=== PATIENT | male | born 1985 | race Caucasian/White ===

== ENCOUNTER → 2017-01-14 | Outpatient (CLI) | payer SELFPAY ==
--- NOTE | 2017-01-14 19:29 | NM ---
EXAMINATION TYPE: NM hepatobiliary w EF DATE OF EXAM: 01/14/2017 COMPARISON: NONE HISTORY: TECHNIQUE: After the intravenous administration of 5.06 mCi Tc 99m Mebrofenin hepatobiliary scintigra phy is performed. Immediate images post injection. FINDINGS: There is prompt opacification of the liver that has normal size and contour. There are no focal defec ts. There is tracer in the small bowel at 5 minutes. At 1 hour the tracers mostly cleared from the li scarlett and there is a small amount of tracer in the gallbladder at 1 hour. The post ensure images show a gallbladder ejection fraction of 60% which is normal.. IMPRESSION: Normal hepatobiliary scan. 60% gallbladder ejection fraction.
== END | disposition home or self-care (01) ==
LOC: RADNMMAIN 15:10
PROVIDERS: ATTEND Family Medicine
DX: R10.9 Unspecified abdominal pain (principal)
CPT/HCPCS: 78226; A9537

== ENCOUNTER → 2017-03-09 | Outpatient (CLI) | payer OTHER ==
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
== END | disposition home or self-care (01) ==
LOC: RADXRMAIN 11:23
PROVIDERS: ATTEND Emergency Medicine
DX: L03.012 Cellulitis of left finger (principal)

== ENCOUNTER → 2019-06-05 | Outpatient (CLI) | payer BC ==
--- NOTE | 2019-06-05 16:45 | XR ---
"EXAMINATION TYPE: XR chest 2V DATE OF EXAM: 06/05/2019 COMPARISON: NONE HISTORY: Cough and shortness of breath TECHNIQUE: Frontal and lateral views of the chest are obtained. FINDINGS: There is no pleural effusion or pneumothorax seen. The cardiac silhouette size is within normal limits. The osseous structures are intact. There is bronchial wall thickening present. Quest ion some patchy increased perihilar density on the left. IMPRESSION: Sinus consistent with pneumonia, bronchial wall thickening may be due to bronchitis, vipul ctive airways disease, follow-up recommended. A Yellow level critical message alert has been initiated for Jaret Epperson MD via the [employer] 0 | Critical Results System on 06/05/2019 4:42 PM. This message alert has been sent to Jaret Epperson MD via the preferences provided by the clinician for the receipt of Radiology Critical Findings. [facility] ID [id number]."
== END ==
LOC: RADXRMAIN 16:02
PROVIDERS: ATTEND Family Medicine
DX: R05 Cough (principal)
CPT/HCPCS: 71046

== ENCOUNTER 2022-12-29 16:32 | Emergency (ER) | payer BC ==
--- NOTE | 2022-12-29 16:35 | ED ---
General Adult HPI <Joesph Navarro - Last Filed: 12/29/22 22:35> - General Source: RN notes reviewed <Jessi Gillespie - Last Filed: 12/29/22 22:52> - General Stated complaint: ABD Pain Time Seen by Provider: 12/29/22 16:34 - History of Present Illness Initial comments: This is a 37-year-old male with a past medical history including diabetes and atrial fibrillation not on her current medications presents emergency department today for overall fatigue and generalized abdominal pain. The patient stated over the last 2 weeks he had generalized abdominal pain with pain in the epigastric region. The patient also stated that he had increasing fatigue over the last 3-4 days and has not and drink anything over the last several days. The patient came to the emergency Department because of the continued discomfort. The patient had not seen his primary care physician. The patient is otherwise resting in bed comfortably without any acute distress noted. The patient denied any fevers and chills. (Joseph Navarro) 37 year old male with medical history of atrial fibrillation and diabetes presents to the emergency department with a chief complaint of generalized abdominal pain x 3 days. Patient reports accompanying symptoms of nausea. Denies fevers. He is complaining of generalized weakness and fatigue for 2 weeks. I performed the quick note portion of this exam. Verbal signature Jessi Gillespie PA-C (Jessi Gillespie) - Related Data Home Medications Medication Instructions Recorded Confirmed Insulin Glargine [Lantus] 24 unit SQ HS 02/27/15 02/28/15 Insulin Lispro [humaLOG] 0 units SQ Q4HR PRN 02/27/15 02/28/15 Previous Rx's Medication Instructions Recorded Dicyclomine [Bentyl] 10 mg PO TID #20 capsule 12/29/22 Allergies Allergy/AdvReac Type Severity Reaction Status Date / Time No Known Allergies Allergy Verified 02/27/15 14:48 Review of Systems ROS Other: All systems not noted in ROS Statement are negative. <Joseph Navarro - Last Filed: 12/29/22 22:35> ROS Other: All systems not noted in ROS Statement are negative. <Jessi Gillespie - Last Filed: 12/29/22 22:52> ROS Statement: Those systems with pertinent positive or pertinent negative responses have been documented in the HPI. Past Medical History Past Medical History: Atrial Fibrillation, Diabetes Mellitus, Skin Disorder Additional Past Medical History / Comment(s): occasional afib-. psoriasis History of Any Multi-Drug Resistant Organisms: None Reported Past Surgical History: No Surgical Hx Reported Past Anesthesia/Blood Transfusion Reactions: No Reported Reaction Additional Past Anesthesia/Blood Transfusion Reaction / Comment(s): fisrt time to have anesthesia Past Alcohol Use History: Occasional Additional Past Alcohol Use History / Comment(s): might smoke about 20 cigatettes a week or less Past Drug Use History: None Reported - Past Family History Mother Family Medical History: No Reported History <Jessi Gillespie - Last Filed: 12/29/22 22:52> General Exam Limitations: no limitations General appearance: alert, in no apparent distress Head exam: Present: atraumatic, normocephalic, normal inspection Eye exam: Present: normal appearance, PERRL Pupils: Present: normal accommodation ENT exam: Present: normal exam, normal oropharynx, mucous membranes moist Neck exam: Present: normal inspection, full ROM Respiratory exam: Present: normal lung sounds bilaterally Cardiovascular Exam: Present: regular rate, normal rhythm, normal heart sounds GI/Abdominal exam: Present: soft, tenderness (Mild TTP in the epigastric region), normal bowel sounds Extremities exam: Present: normal inspection, full ROM Back exam: Present: normal inspection, full ROM Neurological exam: Present: alert, oriented X3, CN II-XII intact Psychiatric exam: Present: normal affect, normal mood Skin exam: Present: warm, dry <Joseph Navarro - Last Filed: 12/29/22 22:35> <Jessi Gillespie - Last Filed: 12/29/22 22:52> - General Exam Comments Initial Comments: Visual Physical Exam Vital signs reviewed General: Well-appearing, nontoxic, no acute distress. Head: Normocephalic, atraumatic Eyes: PERRLA, EOMI ENT: Airway patent Chest: Nonlabored breathing Skin: No visual rash, normal skin tone Neuro: Alert and oriented 3 Musculoskeletal: No gross abnormalities (Jessi Gillespie) Course Vital Signs 12/29/22 17:01 Temperature 97.9 F Pulse Rate 76 Respiratory 16 Rate Blood Pressure 151/79 O2 Sat by Pulse 97 Oximetry Medical Decision Making - Lab Data Result diagrams: 12/29/22 17:17 12/29/22 17:17 <Joseph Navarro - Last Filed: 12/29/22 22:35> - Lab Data Result diagrams: 12/29/22 17:17 12/29/22 17:17 <Jessi Gillespie - Last Filed: 12/29/22 22:52> - Medical Decision Making Was pt. sent in by a medical professional or institution ([facility]OY Vick, ASSEMBLER TRUCK TRAILER, urgent care, hospital, or fci...) When possible be specific @ -No Did you speak to anyone other than the patient for history (EMS, parent, family, police, friend...)? What history was obtained from this source @ -No Did you review nursing and triage notes (agree or disagree)? Why? @ -I reviewed and agree with nursing and triage notes Were old charts reviewed (outside hosp., previous admission, EMS record, old EKG, old radiological studies, urgent care reports/EKG's, fci records)? Report findings @ -No old charts were reviewed Differential Diagnosis (chest pain, altered mental status, abdominal pain women, abdominal pain men, vaginal bleeding, weakness, fever, dyspnea, syncope, headache, dizziness, GI bleed, back pain, seizure, CVA, palpatations, mental health)? @ -Peptic ulcer disease, gastritis, gastroenteritis, mono EKG interpreted by me (3pts min.). @ -None X-rays interpreted by me (1pt min.). @ -None done CT interpreted by me (1pt min.). @ -None done U/S interpreted by me (1pt. min.). @ -Ultrasound was obtained and was interpreted by myself showing no acute process. What testing was considered but not performed or refused? (CT, X-rays, U/S, labs)? Why? @ -None What meds were considered but not given or refused? Why? @ -None Did you discuss the management of the patient with other professionals (professionals i.e. TROY Vick, ASSEMBLER TRUCK TRAILER, lab, RT, psych nurse, director social service, inspector repairer sandstone, teacher, financial aid officer, binder caser)? Give summary @ -No Was smoking cessation discussed for >3mins.? @ -No Was critical care preformed (if so, how long)? @ -No Were there social determinants of health that impacted care today? How? (Homelessness, low income, unemployed, alcoholism, drug addiction, bonner sportation, low edu. Level, literacy, decrease access to med. care, halfway, rehab)? @ -No Was there de-escalation of care discussed even if they declined (Discuss DNR or withdrawal of care, Hospice)? DNR status @ -No What co-morbidities impacted this encounter? (DM, HTN, Smoking, COPD, CAD, Cancer, CVA, ARF, Chemo, Hep., AIDS, mental health diagnosis, sleep apnea, morbid obesity)? @ -Diabetes, atrial fibrillation, not on any medication Was patient admitted / discharged? Hospital course, mention meds given and route, prescriptions, significant lab abnormalities, going to OR and other pertinent info. @ -The patient was seen and evaluated in emergency department. Physical exam, the patient was resting in bed without any acute distress. Vital signs admission were stable. All laboratory workup was within normal limits. On reevaluation, the patient stated he had continued epigastric discomfort and was given a GI cocktail. A heterophile test was ordered. The patient remained stable and had Bentyl as a prescription sent to the pharmacy because he did not want to take it here in emergency department. The patient was stable for discharge and was given follow-up for Dr. Rowe as well as his primary care physician. The patient was also advised report back to the emergency department. Worsening pain or distress. The patient was agreeable to this and all discretions were answered. The patient was discharged home in stable condition. Undiagnosed new problem with uncertain prognosis? @ -No Drug Therapy requiring intensive monitoring for toxicity (Heparin, Nitro, Insulin, Cardizem)? @ -No Were any procedures done? @ -No Diagnosis/symptom? @ -Abdominal pain, NOS, fatigue Acute, or Chronic, or Acute on Chronic? @ -Acute on chronic Uncomplicated (without systemic symptoms) or Complicated (systemic symptoms)? @ -Uncomplicated Side effects of treatment? @ -No Exacerbation, Progression, or Severe Exacerbation? @ -No Poses a threat to life or bodily function? How? (Chest pain, [place], [place], pneumonia, PE, COPD, DKA, ARF, appy, cholecystitis, CVA, Diverticulitis, Homicidal, Suicidal, threat to staff... and all critical care pts) @ -No (Joseph Navarro) - Lab Data Lab Results 12/29/22 12/29/22 12/29/22 Range/Units 17:15 17:17 17:17 WBC 5.7 (3.8-10.6) k/uL RBC 5.20 (4.30-5.90) m/uL Hgb 16.0 (13.0-17.5) gm/dL Hct 46.5 (39.0-53.0) % MCV 89.3 (80.0-100.0) fL MCH 30.7 (25.0-35.0) pg MCHC 34.4 (31.0-37.0) g/dL RDW 13.2 (11.5-15.5) % Plt Count 232 (150-450) k/uL MPV 8.3 Neutrophils % 54 % Lymphocytes % 33 % Monocytes % 5 % Eosinophils % 5 % Basophils % 1 % Neutrophils # 3.0 (1.3-7.7) k/uL Lymphocytes # 1.9 (1.0-4.8) k/uL Monocytes # 0.3 (0-1.0) k/uL Eosinophils # 0.3 (0-0.7) k/uL Basophils # 0.1 (0-0.2) k/uL Sodium 140 (137-145) mmol/L Potassium 3.8 (3.5-5.1) mmol/L Chloride 105 (98-107) mmol/L Carbon Dioxide 28 (22-30) mmol/L Anion Gap 7 mmol/L BUN 17 (9-20) mg/dL Creatinine 0.80 (0.66-1.25) mg/dL Est GFR (CKD-EPI)AfAm >90 (>60 ml/min/1.73 sqM) Est GFR (CKD-EPI)NonAf >90 (>60 ml/min/1.73 sqM) Glucose 94 (74-99) mg/dL Plasma Lactic Acid José Luis (0.7-2.0) mmol/L Calcium 9.5 (8.4-10.2) mg/dL Total Bilirubin 1.9 H (0.2-1.3) mg/dL AST 47 (17-59) U/L ALT 54 H (4-49) U/L Alkaline Phosphatase 45 (38-126) U/L Total Protein 7.2 (6.3-8.2) g/dL Albumin 4.4 (3.5-5.0) g/dL Influenza Type A (PCR) Not Detected (Not Detectd) Influenza Type B (PCR) Not Detected (Not Detectd) RSV (PCR) Not Detected (Not Detectd) SARS-CoV-2 (PCR) Not Detected (Not Detectd) 12/29/22 Range/Units 17:19 WBC (3.8-10.6) k/uL RBC (4.30-5.90) m/uL Hgb (13.0-17.5) gm/dL Hct (39.0-53.0) % MCV (80.0-100.0) fL MCH (25.0-35.0) pg MCHC (31.0-37.0) g/dL RDW (11.5-15.5) % Plt Count (150-450) k/uL MPV Neutrophils % % Lymphocytes % % Monocytes % % Eosinophils % % Basophils % % Neutrophils # (1.3-7.7) k/uL Lymphocytes # (1.0-4.8) k/uL Monocytes # (0-1.0) k/uL Eosinophils # (0-0.7) k/uL Basophils # (0-0.2) k/uL Sodium (137-145) mmol/L Potassium (3.5-5.1) mmol/L Chloride (98-107) mmol/L Carbon Dioxide (22-30) mmol/L Anion Gap mmol/L BUN (9-20) mg/dL Creatinine (0.66-1.25) mg/dL Est GFR (CKD-EPI)AfAm (>60 ml/min/1.73 sqM) Est GFR (CKD-EPI)NonAf (>60 ml/min/1.73 sqM) Glucose (74-99) mg/dL Plasma Lactic Acid José Luis 0.9 (0.7-2.0) mmol/L Calcium (8.4-10.2) mg/dL Total Bilirubin (0.2-1.3) mg/dL AST (17-59) U/L ALT (4-49) U/L Alkaline Phosphatase (38-126) U/L Total Protein (6.3-8.2) g/dL Albumin (3.5-5.0) g/dL Influenza Type A (PCR) (Not Detectd) Influenza Type B (PCR) (Not Detectd) RSV (PCR) (Not Detectd) SARS-CoV-2 (PCR) (Not Detectd) Disposition Is patient prescribed a controlled substance at d/c from ED?: No Time of Disposition: 22:45 <Joseph Navarro - Last Filed: 12/29/22 22:35> <Jessi Gillespie - Last Filed: 12/29/22 22:52> Clinical Impression: Abdominal pain, Fatigue Disposition: HOME SELF-CARE Condition: Stable Instructions (If sedation given, give patient instructions): Abdominal Pain (ED) Prescriptions: Dicyclomine [Bentyl] 10 mg PO TID #20 capsule Referrals: Maty Farley III, MD [Primary Care Provider] - 1-2 days Gaby Rowe MD [STAFF PHYSICIAN] - 1-2 days
[2022-12-29 17:37] LABS: Basophils # (A) 0.1 k/uL (0-0.2); Basophils % (A) 1 %; Eosinophils # (A) 0.3 k/uL (0-0.7); Eosinophils % (A) 5 %; HCT 46.5 % (39.0-53.0); Lymphocytes # (A) 1.9 k/uL (1.0-4.8); Lymphocytes % (A) 33 %; MCH 30.7 pg (25.0-35.0); MCHC 34.4 g/dL (31.0-37.0); MCV 89.3 fL (80.0-100.0); Mean Platelet Volume 8.3; Monocytes # (A) 0.3 k/uL (0-1.0); Monocytes % (A) 5 %; Neutrophils % (A) 54 %; Platelet Count 232 k/uL (150-450); RDW 13.2 % (11.5-15.5); WBC 5.7 k/uL (3.8-10.6)
[2022-12-29 18:09] LABS: ALT 54 U/L (4-49); AST 47 U/L (17-59); African American GFR (CKD) >90 (>60 ml/min/1.73 sqM); Albumin 4.4 g/dL (3.5-5.0); Alkaline Phosphatase 45 U/L (38-126); Anion Gap 7 mmol/L; Blood Urea Nitrogen 17 mg/dL (9-20); Calcium 9.5 mg/dL (8.4-10.2); Carbon Dioxide 28 mmol/L (22-30); Chloride 105 mmol/L (98-107); Glucose 94 mg/dL (74-99); Non-African American GFR(CKD) >90 (>60 ml/min/1.73 sqM); Potassium 3.8 mmol/L (3.5-5.1); Sodium 140 mmol/L (137-145); Total Bilirubin 1.9 mg/dL (0.2-1.3); Total Protein 7.2 g/dL (6.3-8.2)
--- NOTE | 2022-12-29 20:37 | US ---
EXAMINATION TYPE: US gallbladder DATE OF EXAM: 12/29/2022 COMPARISON: NONE CLINICAL INDICATION: Male, 37 years old with history of elevated bilirubin; elevated bilirubin. Patie nt states weakness for 2 weeks TECHNIQUE: Multiple sonographic images of the right upper quadrant are obtained. FINDINGS: EXAM MEASUREMENTS: Liver Length: 15.4 cm Gallbladder Wall: 0.25 cm CBD: 0.33 cm Right Kidney: 11.9 x 6.1 x 7.2 cm CONSTRUCTION SAFETY CONSULTANT NOTES: Pancreas: Obscured by bowel gas Liver: wnl Gallbladder: wnl Evidence for sonographic Garcia's sign: No CBD: wnl Right Kidney: wnl Pancreas is obscured by overlying bowel gas. Liver is unremarkable without focal lesion. Gallbladder is unremarkable without evidence of cholelithiasis, wall thickening, or pericholecystic fluid. Per so nographer, negative sonographic Garcia sign. Common bile duct within normal limits. Right kidney is u nremarkable without evidence of hydronephrosis, solid mass, nephrolithiasis. IMPRESSION: Unremarkable right upper quadrant abdominal ultrasound.
[2022-12-29] MEDS ORDERED: MAG HYDROX/AL HYDROX/SIMETH 30 ML, HYOSCYAMINE ELIXIR 10 ML, LIDOCAINE 2% GLYDO JELLY 1... PO STA ×3 (22:34)
[2022-12-29 23:23] VITALS: RESP 18
[2022-12-30 00:23] VITALS: BP 103/71; PULSE 60; TEMP 98.9
== END 2022-12-30 00:23 | disposition home or self-care (01) ==
LOC: EC 16:32
DX: R10.11 Right upper quadrant pain (principal); R53.83 Other fatigue; I48.91 Unspecified atrial fibrillation; E11.9 Type 2 diabetes mellitus without complications; Z79.4 Long term (current) use of insulin
CPT/HCPCS: 36415; 76705; 80053; 83605; 85025; 86308; 87636; 99284

== ENCOUNTER 2022-12-31 19:34 | Emergency (ER) | payer BC ==
[2022-12-31 19:41] VITALS: TEMP 99.1
--- NOTE | 2022-12-31 21:09 | ED ---
Abdominal Pain HPI - General Source: patient Mode of arrival: ambulatory Limitations: no limitations <Emre Gaona - Last Filed: 12/31/22 21:08> <Kevin Valderrama - Last Filed: 12/31/22 23:51> - General Chief Complaint: Abdominal Pain Stated Complaint: EXTREME ABD PAIN Time Seen by Provider: 12/31/22 21:08 - History of Present Illness Initial Comments: 37-year-old male presenting with chief complaint of abdominal pain. He was seen here 2 days ago for same complaint. (Emre Gaona) 37-year-old male presents to the ED with a chief complaint of abdominal pain. Patient last seen here 2 days ago. At that time, notes that he has had diffuse abdominal pain mostly upper floor last few weeks with associated nausea and vomiting. At that time, had an ultrasound gallbladder which was unremarkable. Laboratory studies at that time were also unremarkable. Since discharge, patient states pain has worsened in severity. Also notes he feels more fatigued than usual. Denies changes in bowel or bladder habits. Denies chest pain shortness of breath. No other complaints. (Kevin Valderrama) - Related Data Home Medications Medication Instructions Recorded Confirmed Insulin Glargine [Lantus] 24 unit SQ HS 02/27/15 02/28/15 Insulin Lispro [humaLOG] 0 units SQ Q4HR PRN 02/27/15 02/28/15 Previous Rx's Medication Instructions Recorded Dicyclomine [Bentyl] 10 mg PO TID #20 capsule 12/29/22 Dicyclomine [Bentyl] 10 mg PO TID #20 capsule 12/31/22 Allergies Allergy/AdvReac Type Severity Reaction Status Date / Time No Known Allergies Allergy Verified 12/31/22 19:41 Review of Systems ROS Other: All systems not noted in ROS Statement are negative. <Emre Gaona - Last Filed: 12/31/22 21:08> ROS Other: All systems not noted in ROS Statement are negative. <Kevin Valderrama - Last Filed: 12/31/22 23:51> ROS Statement: Those systems with pertinent positive or pertinent negative responses have been documented in the HPI. Past Medical History Past Medical History: Atrial Fibrillation, Diabetes Mellitus, Skin Disorder Additional Past Medical History / Comment(s): occasional afib-. psoriasis History of Any Multi-Drug Resistant Organisms: None Reported Past Surgical History: No Surgical Hx Reported Past Anesthesia/Blood Transfusion Reactions: No Reported Reaction Additional Past Anesthesia/Blood Transfusion Reaction / Comment(s): fisrt time to have anesthesia Past Psychological History: No Psychological Hx Reported Smoking Status: Vaper Past Alcohol Use History: Occasional Past Drug Use History: None Reported - Past Family History Mother Family Medical History: No Reported History <Emre Gaona - Last Filed: 12/31/22 21:08> General Exam Limitations: no limitations <Emre Gaona - Last Filed: 12/31/22 21:08> General appearance: alert, in no apparent distress Neck exam: Present: normal inspection Respiratory exam: Present: normal lung sounds bilaterally Cardiovascular Exam: Present: regular rate, normal rhythm GI/Abdominal exam: Present: soft (Diffuse abdominal tenderness to palpation. No rebound guarding or rigidity.) Neurological exam: Present: alert, oriented X3 Skin exam: Present: warm, dry <Kevin Valderrama - Last Filed: 12/31/22 23:51> - General Exam Comments Initial Comments: Visual Physical Exam Vital signs reviewed General: Well-appearing, nontoxic, no acute distress. Head: Normocephalic, atraumatic Eyes: PERRLA, EOMI ENT: Airway patent Chest: Nonlabored breathing Skin: No visual rash, normal skin tone Neuro: Alert and oriented 3 Musculoskeletal: No gross abnormalities (Emre Gaona) Course Vital Signs 12/31/22 19:39 Temperature 99.1 F Pulse Rate 95 Respiratory 18 Rate Blood Pressure 103/78 O2 Sat by Pulse 99 Oximetry Medical Decision Making - Lab Data Result diagrams: 12/31/22 21:46 12/31/22 21:46 <Kevin Valderrama - Last Filed: 12/31/22 23:51> - Medical Decision Making Was pt. sent in by a medical professional or institution (, PA, FAX MACHINE OPERATOR, urgent care, hospital, or fci...) When possible be specific @ -No Did you speak to anyone other than the patient for history (EMS, parent, family, police, friend...)? What history was obtained from this source @ -No Did you review nursing and triage notes (agree or disagree)? Why? @ -I reviewed and agree with nursing and triage notes Were old charts reviewed (outside hosp., previous admission, EMS record, old EKG, old radiological studies, urgent care reports/EKG's, fci records)? Report findings @ -Previous visit reviewed. Seen here on 12/29/22. At that time had unremarkable lab work in ultrasound that was negative for acute process. Differential Diagnosis (chest pain, altered mental status, abdominal pain women, abdominal pain men, vaginal bleeding, weakness, fever, dyspnea, syncope, he adache, dizziness, GI bleed, back pain, seizure, CVA, palpatations, mental health, musculoskeletal)? @ -Differential Abdominal Pain Men: Appendicitis, cholecystitis, diverticulosis, ischemic bowel, pancreatitis, hepatitis, UTI, gastroenteritis, AAA, incarcerated hernia, bowel obstruction, constipation, inflammatory bowel, hepatitis, peptic ulcer disease, splenic infarction, perforated viscus, testicular torsion, this is not meant to be an all-inclusive list EKG interpreted by me (3pts min.). @ -None X-rays interpreted by me (1pt min.). @ -None done CT interpreted by me (1pt min.). @ -CT scan shows evidence of enteritis however negative for other acute proce ss. U/S interpreted by me (1pt. min.). @ -None done What testing was considered but not performed or refused? (CT, X-rays, U/S, labs)? Why? @ -None What meds were considered but not given or refused? Why? @ -None Did you discuss the management of the patient with other professionals (professionals i.e. , PA, FAX MACHINE OPERATOR, lab, RT, psych nurse, school social worker, interventional cardiologist, teacher, inshore undersea warfare officer, shoe parts caser)? Give summary @ -No Was smoking cessation discussed for >3mins.? @ -No Was critical care preformed (if so, how long)? @ -No Were there social determinants of health that impacted care today? How? (Homelessness, low income, unemployed, alcoholism, drug addiction, transportation, low edu. Level, literacy, decrease access to med. care, senior care, rehab)? @ -No Was there de-escalation of care discussed even if they declined (Discuss DNR or withdrawal of care, Hospice)? DNR status @ -No What co-morbidities impacted this encounter? (DM, HTN, Smoking, COPD, CAD, Cancer, CVA, ARF, Chemo, Hep., AIDS, mental health diagnosis, sleep apnea, morbid obesity)? @ -None Was patient admitted / discharged? Hospital course, mention meds given and route, prescriptions, significant lab abnormalities, going to OR and other pertinent info. @ -Discharge. Laboratory studies here are unremarkable. CT showed evidence of enteritis however no other acute process. Patient had improvement of pain and nausea here with IV Toradol and Zofran. Patient discharged home in stable condition with prescription for Bentyl Undiagnosed new problem with uncertain prognosis? @ -No Drug Therapy requiring intensive monitoring for toxicity (Heparin, Nitro, Insulin, Cardizem)? @ -No Were any procedures done? @ -No Diagnosis/symptom? @ -Enteritis Acute, or Chronic, or Acute on Chronic? @ -Acute Uncomplicated (without systemic symptoms) or Complicated (systemic symptoms)? @ -Uncomplicated Side effects of treatment? @ -No Exacerbation, Progression, or Severe Exacerbation? @ -No Poses a threat to life or bodily function? How? (Chest pain, USA, IA, pneumonia, PE, COPD, DKA, ARF, appy, cholecystitis, CVA, Diverticulitis, Homicidal, Suicidal, threat to staff... and all critical care pts) @ -No (Kevin Valderrama) - Lab Data Lab Results 12/31/22 12/31/22 12/31/22 Range/Units 21:13 21:46 21:46 WBC 6.6 (3.8-10.6) k/uL RBC 5.15 (4.30-5.90) m/uL Hgb 15.8 (13.0-17.5) gm/dL Hct 46.2 (39.0-53.0) % MCV 89.7 (80.0-100.0) fL MCH 30.6 (25.0-35.0) pg MCHC 34.2 (31.0-37.0) g/dL RDW 13.2 (11.5-15.5) % Plt Count 222 (150-450) k/uL MPV 7.9 Neutrophils % 56 % Lymphocytes % 34 % Monocytes % 5 % Eosinophils % 3 % Basophils % 1 % Neutrophils # 3.7 (1.3-7.7) k/uL Lymphocytes # 2.2 (1.0-4.8) k/uL Monocytes # 0.3 (0-1.0) k/uL Eosinophils # 0.2 (0-0.7) k/uL Basophils # 0.1 (0-0.2) k/uL PT 10.3 (9.0-12.0) sec INR 1.0 (<1.2) APTT 26.1 (22.0-30.0) sec Sodium (137-145) mmol/L Potassium (3.5-5.1) mmol/L Chloride (98-107) mmol/L Carbon Dioxide (22-30) mmol/L Anion Gap mmol/L BUN (9-20) mg/dL Creatinine (0.66-1.25) mg/dL Est GFR (CKD-EPI)AfAm (>60 ml/min/1.73 sqM) Est GFR (CKD-EPI)NonAf (>60 ml/min/1.73 sqM) Glucose (74-99) mg/dL Plasma Lactic Acid José Luis (0.7-2.0) mmol/L Calcium (8.4-10.2) mg/dL Total Bilirubin (0.2-1.3) mg/dL AST (17-59) U/L ALT (4-49) U/L Alkaline Phosphatase (38-126) U/L Total Protein (6.3-8.2) g/dL Albumin (3.5-5.0) g/dL Amylase (30-110) U/L Lipase (23-300) U/L Urine Color Yellow Urine Appearance Clear (Clear) Urine pH 7.5 (5.0-8.0) Ur Specific Bowden 1.020 (1.001-1.035) Urine Protein Negative (Negative) Urine Glucose (UA) Negative (Negative) Urine Ketones Negative (Negative) Urine Blood Negative (Negative) Urine Nitrite Negative (Negative) Urine Bilirubin Negative (Negative) Urine Urobilinogen <2.0 (<2.0) mg/dL Ur Leukocyte Esterase Negative (Negative) 12/31/22 12/31/22 Range/Units 21:46 21:46 WBC (3.8-10.6) k/uL RBC (4.30-5.90) m/uL Hgb (13.0-17.5) gm/dL Hct (39.0-53.0) % MCV (80.0-100.0) fL MCH (25.0-35.0) pg MCHC (31.0-37.0) g/dL RDW (11.5-15.5) % Plt Count (150-450) k/uL MPV Neutrophils % % Lymphocytes % % Monocytes % % Eosinophils % % Basophils % % Neutrophils # (1.3-7.7) k/uL Lymphocytes # (1.0-4.8) k/uL Monocytes # (0-1.0) k/uL Eosinophils # (0-0.7) k/uL Basophils # (0-0.2) k/uL PT (9.0-12.0) sec INR (<1.2) APTT (22.0-30.0) sec Sodium 141 (137-145) mmol/L Potassium 4.7 (3.5-5.1) mmol/L Chloride 107 (98-107) mmol/L Carbon Dioxide 27 (22-30) mmol/L Anion Gap 7 mmol/L BUN 19 (9-20) mg/dL Creatinine 1.26 H (0.66-1.25) mg/dL Est GFR (CKD-EPI)AfAm 85 (>60 ml/min/1.73 sqM) Est GFR (CKD-EPI)NonAf 73 (>60 ml/min/1.73 sqM) Glucose 130 H (74-99) mg/dL Plasma Lactic Acid José Luis 0.6 L (0.7-2.0) mmol/L Calcium 9.2 (8.4-10.2) mg/dL Total Bilirubin 1.2 (0.2-1.3) mg/dL AST 44 (17-59) U/L ALT 52 H (4-49) U/L Alkaline Phosphatase 51 (38-126) U/L Total Protein 7.2 (6.3-8.2) g/dL Albumin 4.3 (3.5-5.0) g/dL Amylase 77 (30-110) U/L Lipase 33 (23-300) U/L Urine Color Urine Appearance (Clear) Urine pH (5.0-8.0) Ur Specific Bowden (1.001-1.035) Urine Protein (Negative) Urine Glucose (UA) (Negative) Urine Ketones (Negative) Urine Blood (Negative) Urine Nitrite (Negative) Urine Bilirubin (Negative) Urine Urobilinogen (<2.0) mg/dL Ur Leukocyte Esterase (Negative) Disposition <Emre Gaona - Last Filed: 12/31/22 21:08> Is patient prescribed a controlled substance at d/c from ED?: No Time of Disposition: 23:51 <Kevin Valderrama - Last Filed: 12/31/22 23:51> Clinical Impression: Enteritis Disposition: HOME SELF-CARE Condition: Good Instructions (If sedation given, give patient instructions): Gastroenteritis (ED) Additional Instructions: Please return to the Emergency Department if symptoms worsen or any other concerns. Prescriptions: Dicyclomine [Bentyl] 10 mg PO TID #20 capsule Referrals: Maty Farley III, MD [Primary Care Provider] - 1-2 days
[2022-12-31 21:55] LABS: Appearance,Urine Clear (Clear); Bilirubin,Urine Negative (Negative); Blood,Urine Negative (Negative); Color,Urine Yellow; Glucose,Urine (UA) Negative (Negative); Ketones,Urine Negative (Negative); Leukocyte Esterase,Urine Negative (Negative); Nitrite,Urine Negative (Negative); PH, Urine 7.5 (5.0-8.0); Protein,Urine Negative (Negative); Urobilinogen,Urine <2.0 mg/dL (<2.0)
[2022-12-31 22:03] LABS: Basophils # (A) 0.1 k/uL (0-0.2); Basophils % (A) 1 %; Eosinophils # (A) 0.2 k/uL (0-0.7); Eosinophils % (A) 3 %; HCT 46.2 % (39.0-53.0); HGB 15.8 gm/dL (13.0-17.5); Lymphocytes # (A) 2.2 k/uL (1.0-4.8); Lymphocytes % (A) 34 %; MCH 30.6 pg (25.0-35.0); MCHC 34.2 g/dL (31.0-37.0); MCV 89.7 fL (80.0-100.0); Mean Platelet Volume 7.9; Monocytes # (A) 0.3 k/uL (0-1.0); Monocytes % (A) 5 %; Neutrophils # (A) 3.7 k/uL (1.3-7.7); Neutrophils % (A) 56 %; Platelet Count 222 k/uL (150-450); RBC 5.15 m/uL (4.30-5.90); RDW 13.2 % (11.5-15.5); WBC 6.6 k/uL (3.8-10.6)
[2022-12-31 22:13] LABS: ALT 52 U/L (4-49); AST 44 U/L (17-59); African American GFR (CKD) 85 (>60 ml/min/1.73 sqM); Albumin 4.3 g/dL (3.5-5.0); Alkaline Phosphatase 51 U/L (38-126); Amylase 77 U/L (30-110); Anion Gap 7 mmol/L; Blood Urea Nitrogen 19 mg/dL (9-20); Calcium 9.2 mg/dL (8.4-10.2); Carbon Dioxide 27 mmol/L (22-30); Chloride 107 mmol/L (98-107); Glucose 130 mg/dL (74-99); Lipase 33 U/L (23-300); Non-African American GFR(CKD) 73 (>60 ml/min/1.73 sqM); Potassium 4.7 mmol/L (3.5-5.1); Sodium 141 mmol/L (137-145); Total Bilirubin 1.2 mg/dL (0.2-1.3); Total Protein 7.2 g/dL (6.3-8.2)
[2022-12-31 22:15] LABS: Partial Thromboplastin Time 26.1 sec (22.0-30.0); Prothrombin Time 10.3 sec (9.0-12.0)
[2022-12-31] MEDS ORDERED: SODIUM CHLORIDE 0.9% 1,000 ML IV STA (22:17)
[2022-12-31] MEDS ORDERED: ONDANSETRON 4 MG/2 ML VIAL IVP STA (22:17)
[2022-12-31] MEDS ORDERED: KETOROLAC 15 MG/ML 1 ML VIAL IVP STA (22:17)
--- NOTE | 2022-12-31 23:35 | CT ---
EXAM: CT Abdomen and Pelvis With Intravenous Contrast CLINICAL HISTORY: ITS.REASON CT Reason: abdominal pain TECHNIQUE: Axial computed tomography images of the abdomen and pelvis with intravenous contrast. CTDI is 19.8 mGy and DLP is 1007.3 mGy-cm. This CT exam was performed using one or more of the following dose reduction techniques: automated exposure control, adjustment of the mA and/or kV according to patient size, and/or use of iterative reconstruction technique. COMPARISON: No previous studies. FINDINGS: Lung bases: Unremarkable. No mass. No consolidation. Pleural space: Unremarkable. No pneumothorax. No pleural effusions are noted. Heart: Heart is normal in size. Mediastinum: Distal esophagitis is noted. ABDOMEN: Liver: Diffuse fatty infiltration of the liver. Gallbladder and bile ducts: The gallbladder is in a partially contracted state without gallstones. No ductal dilation. Pancreas: See below. Spleen: Spleen enhances uniformly. Adrenals: The adrenal glands, the head, body, tail of the pancreas are unremarkable. Kidneys and ureters: Unremarkable. No solid mass. No hydronephrosis. Stomach and bowel: Wall thickening of loops of small bowel. Inflammatory or infectious colitis should be considered. Moderate quantity of ingested material in the stomach. Diverticulosis without diverticulitis. No obstruction. PELVIS: Appendix: The appendix is seen on coronal image 46 and is unremarkable. Bladder: Unremarkable. No mass. Reproductive: Unremarkable as visualized. ABDOMEN and PELVIS: Intraperitoneal space: Unremarkable. No free air. No significant fluid collection. Bones/joints: Scattered sclerotic foci noted throughout the bony pelvis most suggestive of bone islands. No acute fracture. No dislocation. No spondylolysis. Soft tissues: Ischiorectal fat is clean. Vasculature: Portal vein is patent. Flow is noted within the celiac, SMA, the renal arteries, and RADHA. No abdominal aortic aneurysm. Lymph nodes: A few shotty central mesenteric lymph nodes are noted with minimal haziness within the central mesentery. No retroperitoneal lymphadenopathy. No pelvic or inguinal lymphadenopathy. IMPRESSION: 1. Consider enteritis. 2. The appendix is unremarkable. 3. Gallbladder is in a partially contracted state without gallstones. 4. No renal calculus or hydronephrosis. 5. A few shotty central mesenteric lymph nodes are noted with minimal haziness within the central mesentery Best seen on series 201 image 47, a nonspecific finding compatible with mesenteric adenitis.
[2022-12-31 23:56] VITALS: BP 97/63; PULSE 65; RESP 16
== END 2022-12-31 23:58 | disposition home or self-care (01) ==
LOC: EC 19:34
DX: K52.9 Noninfective gastroenteritis and colitis, unspecified (principal); E11.9 Type 2 diabetes mellitus without complications; I48.91 Unspecified atrial fibrillation; F17.290 Nicotine dependence, other tobacco product, uncomplicated; Z79.4 Long term (current) use of insulin
CPT/HCPCS: 36415; 80053; 82150; 83605; 83690; 85025; 85610; 85730; 81003; 74177; 99285; 96374; 96375; 96361; J2405; J1885; Q9967

== ENCOUNTER → 2023-09-30 | Outpatient (CLI) | payer OTHER ==
--- NOTE | 2023-09-30 11:30 | XR ---
EXAMINATION TYPE: XR ankle complete RT, XR tibia fibula RT, XR foot complete RT DATE OF EXAM: 09/30/2023 11:25 AM CLINICAL INDICATION:Male, 37 years old with history of S80.11XA S90.01XA S91.001A; [facility] COMPARISON: None TECHNIQUE: XR ankle complete RT, XR tibia fibula RT, XR foot complete RT; ankle is imaged in frontal , lateral and oblique projections. Frontal and lateral views of the tibia and fibula. FINDINGS: There is no evidence of acute osseous pathology. The joint spaces are well-preserved without evidenc e of subluxation or dislocation. Kager's fat pad is intact. Soft tissues are within normal limits. No radiopaque foreign bodies are identified. Calcaneal Achilles enthesophyte formation. Tibia and fibula are intact. The knee appears within normal limits with mild degeneration changes wit h osteophyte formation. Mild multifocal degeneration changes throughout the joints of the foot with osteophyte formation and mild joint space narrowing. IMPRESSION: 1. No evidence of acute fracture.
== END | disposition home or self-care (01) ==
LOC: RADXRMAIN 10:46
PROVIDERS: ATTEND Emergency Medicine
DX: S80.11XA Contusion of right lower leg, initial encounter (principal); S90.01XA Contusion of right ankle, initial encounter; S91.001A Unspecified open wound, right ankle, initial encounter; X58.XXXA Exposure to other specified factors, initial encounter

== ENCOUNTER → 2023-10-07 | Outpatient (CLI) | payer OTHER ==
--- NOTE | 2023-10-07 11:23 | XR ---
EXAMINATION TYPE: XR ankle complete RT DATE OF EXAM: 10/07/2023 11:14 AM CLINICAL INDICATION:Male, 37 years old with history of S90.01XD R ankle contusion; COMPARISON: None TECHNIQUE: XR ankle complete RT; ankle is imaged in frontal, lateral and oblique projections. FINDINGS: There is no evidence of acute osseous pathology. No evidence of subluxation or dislocation. Kager's fat pad is intact. Mild soft tissue swelling around the ankle. No radiopaque foreign bodies are ident ified. Multifocal degeneration changes throughout the joints of the foot with osteophyte formation an d joint space narrowing. Calcaneal Achilles enthesophyte. IMPRESSION: 1. No evidence of acute fracture. 2. Subcutaneous swelling around the ankle likely secondary to underlying soft tissue injury.
== END | disposition home or self-care (01) ==
LOC: RADXRMAIN 10:57
PROVIDERS: ATTEND Emergency Medicine
DX: M25.471 Effusion, right ankle (principal); S90.01XD Contusion of right ankle, subsequent encounter; X58.XXXD Exposure to other specified factors, subsequent encounter

== ENCOUNTER → 2023-10-13 | Outpatient (CLI) | payer OTHER ==
--- NOTE | 2023-10-15 09:54 | MR ---
EXAMINATION TYPE: MR ankle RT wo con DATE OF EXAM: 10/13/2023 COMPARISON: Radiograph 10/07/2023 HISTORY: 37-year-old male S90.01XD CONTUSION OF RIGHT ANKLE, SUBSEQUENT ENCO, deep ankle bruising and achilles pain following injury, rack fell on ankle TECHNIQUE: Multiplanar, multisequence images of the right ankle were obtained without IV contrast. FINDINGS: There is muscle edema involving both the triceps surae and peroneal muscles. There is trace effusion in the retrocalcaneal bursa but normal, intact Achilles tendon. Focal edema at the posterior margin of the distal fibula but with normal superior peroneal retinaculu m and normal and intact underlying peroneal tendons. Lateral ligamentous complex appears intact. Otherwise, no acute fracture is seen. Some mild capsular distention along the dorsal talonavicular joint with a small 4 mm dorsal ganglion cyst. Mild thickening of the posterior tibial tendon with mild tenosynovial fluid. Medial flexor tendons an d deltoid spring ligament complex otherwise appear intact. The syndesmosis and anterior extensor tend ons appear intact. The tibiotalar joint and subtalar joints are aligned. Preserved fatty signal within the sinus Tarsi. Tarsal tunnel is clear. Origin of the plantar fascia is intact. Mild bimalleolar subcutaneous soft tissue swelling. IMPRESSION: 1. Edema involving the posterior muscles of the visualized lower leg, possible muscle strain or soft tissue contusion. The Achilles tendon appears intact. 2. Osseous edema posterior margin of the distal fibula; if there was a direct impact here, consider b one bruise. The overlying peroneal retinaculum and adjacent peroneal tendons appear intact. No discre te fracture seen. 3. Mild posterior tibial tendinosis with mild tenosynovitis.
== END | disposition home or self-care (01) ==
LOC: RADMRIMAIN 05:44
PROVIDERS: ATTEND Emergency Medicine
DX: M65.861 Other synovitis and tenosynovitis, right lower leg (principal); S80.11XD Contusion of right lower leg, subsequent encounter; S90.01XD Contusion of right ankle, subsequent encounter; S91.001D Unspecified open wound, right ankle, subsequent encounter; X58.XXXD Exposure to other specified factors, subsequent encounter

== ENCOUNTER → 2023-11-17 | Outpatient (CLI) | payer BC ==
[2023-11-17 19:43] LABS: ALT 56 U/L (10-49); AST 35 U/L (14-35); Albumin 4.2 g/dL (3.8-4.9); Albumin/Globulin Ratio 1.91 Ratio (1.60-3.17); Alkaline Phosphatase 56 U/L (41-126); BUN/Creat Ratio 10.12 Ratio (12.00-20.00); Blood Urea Nitrogen 8.1 mg/dL (9.0-27.0); Calcium 9.7 mg/dL (8.7-10.3); Carbon Dioxide 25.9 mmol/L (21.6-31.8); Chloride 109 mmol/L (96-109); Chol/HDL Ratio 2.07 Ratio; Globulin 2.2 g/dL (1.6-3.3); Glucose 122 mg/dL (70-110); LDL Cholesterol,Calculated 59.9 mg/dL (0.0-131.0); Potassium 4.4 mmol/L (3.5-5.5); Sodium 144 mmol/L (135-145); Total Bilirubin 1.2 mg/dL (0.3-1.2); Total Protein 6.4 g/dL (6.2-8.2); VLDL Calculation 6.42 mg/dL (5.00-40.00)
[2023-11-18 03:54] LABS: Microalbumin Creatinine Ratio <69 mg/g Cr (0-30); Urine Creatinine 17.4 mg/dL (39.0-259.0)
== END | disposition home or self-care (01) ==
LOC: LABWHC1 13:39
PROVIDERS: ATTEND Internal Medicine Endocrinology, Diabetes & Metabolism
DX: E10.65 Type 1 diabetes mellitus with hyperglycemia (principal)
CPT/HCPCS: 36415; 80053; 80061; 82043; 82570; 84443